=== PATIENT | male | born 1950 | race African-American/Black ===

== ENCOUNTER 2019-03-24 09:14 | Emergency (ER) | payer MEDICARE, OTHER ==
[~2019-03-24] VITALS: Ht 180.3 cm; Wt 72.8 kg
[~2019-03-24 09:14] MED LIST: CYCL10TA7 PO; NAPR-985 PO
[2019-03-24 09:19] VITALS: BP 134/85; PULSE 65; RESP 18; Ht 180.3 cm; Wt 72.8 kg
== END 2019-03-24 10:00 | disposition home or self-care (01) ==
LOC: FTE 09:14
DX: S29.012A Strain of muscle and tendon of back wall of thorax, initial encounter (principal); X58.XXXA Exposure to other specified factors, initial encounter; Y92.9 Unspecified place or not applicable; Z87.891 Personal history of nicotine dependence
CPT/HCPCS: 99283